=== PATIENT | female | born 1965 | race Caucasian/White ===

== ENCOUNTER → 2018-11-28 09:44 | Outpatient (CLI) | payer BC | END | disposition home or self-care (01) | LOC: D.HCCARDIO 09:44 | PROVIDERS: ATTEND Internal Medicine Cardiovascular Disease | DX: I25.10 Atherosclerotic heart disease of native coronary artery without angina pectoris (principal) ==

== ENCOUNTER 2018-12-31 05:49 | Day surgery (SDC) | payer BC ==
[~2018-12-31] VITALS: Ht 160 cm; Wt 106.6 kg
[~2018-12-31 05:49] MED LIST: COZAAR100 MG PO; CYMBALTA30 MG PO; FOLIC ACID1 MG PO; FUROSEMIDE20 MG PO; TOPROL XL100 MG PO
[2018-12-31 06:10] LABS: HEMATOCRIT 35.5 % (36.0-48.0); HEMOGLOBIN 11.9 g/dL (12-16); MCH 30.4 pg (26.0-34.0); MCHC 33.5 g/dL (31.0-37.0); MCV 90.6 fL (80.0-100.0); MEAN PLATELET VOLUME 8.7 fL (7.4-10.4); RBC 3.92 10x6/uL (4.00-5.40); RDW 14.1 % (11.5-14.5); WBC 6.2 10x3/uL (4.8-10.8)
[2018-12-31 07:22] LABS: ANION GAP 12.4 mmol/L (8-16); CALCIUM 8.7 mg/dL (8.5-10.1); CARBON DIOXIDE 27.4 mmol/L (21.0-32.0); POTASSIUM - SERUM 3.8 mmol/L (3.5-5.1)
[2018-12-31 07:27] VITALS: BP 134/84; Ht 160 cm; Wt 106.6 kg
[2018-12-31] MEDS ORDERED: HYDROCODON-ACE1 EAC7 PO (10:21)
--- NOTE | 2018-12-31 13:28 | NUR ---
1330 IV REMOVED AND PT VOIDED. D/C INSTRUCTIONS GIVEN TO PT AND FAMILY
== END 2018-12-31 13:32 | disposition home or self-care (01) ==
LOC: D.OPS 05:49 → D.PAN 09:30 → D.OPS 13:32
PROVIDERS: Anesthesiology; ATTEND Surgery
DX: K80.20 Calculus of gallbladder without cholecystitis without obstruction (principal); I10 Essential (primary) hypertension

== ENCOUNTER → 2020-07-31 08:36 | Outpatient (CLI) | payer BC ==
[2018-12-31 07:27] VITALS: BMI 41.7
[~2020-07-31 08:36] MED LIST changes: +HYDROCODON-ACE1 EAC7 PO
== END | disposition home or self-care (01) ==
LOC: D.HCCECHO 08:36
PROVIDERS: ATTEND Internal Medicine Cardiovascular Disease
DX: I10 Essential (primary) hypertension (principal)